=== PATIENT | female | born 1990 ===

== ENCOUNTER 2023-06-01 13:44 | Outpatient (CLI) | payer OTHER | END 2023-06-01 13:45 | disposition home or self-care (01) | LOC: PRENATAL 13:44 | PROVIDERS: ATTEND Obstetrics & Gynecology Maternal & Fetal Medicine | DX: O36.80X0 Pregnancy with inconclusive fetal viability, not applicable or unspecified (principal); Z36.82 Encounter for antenatal screening for nuchal translucency; Z36.9 Encounter for antenatal screening, unspecified; O09.519 Supervision of elderly primigravida, unspecified trimester; O99.019 Anemia complicating pregnancy, unspecified trimester; Z3A.13 13 weeks gestation of pregnancy ==

== ENCOUNTER → 2023-07-15 11:02 | Outpatient (CLI) | payer OTHER | END | disposition home or self-care (01) | LOC: PRENATAL 11:02 | PROVIDERS: ATTEND Obstetrics & Gynecology Maternal & Fetal Medicine | DX: O35.9XX0 Maternal care for (suspected) fetal abnormality and damage, unspecified, not applicable or unspecified (principal); O44.00 Complete placenta previa NOS or without hemorrhage, unspecified trimester; O09.519 Supervision of elderly primigravida, unspecified trimester; Z3A.19 19 weeks gestation of pregnancy ==